=== PATIENT | female | born 1990 | race Caucasian/White ===

== ENCOUNTER 2022-01-29 12:44 | Emergency (ER) | payer OTHER | END 2022-01-29 14:39 | disposition home or self-care (01) | LOC: MW.ED 12:44 | DX: H92.01 Otalgia, right ear (principal) | CPT/HCPCS: 99282 ==

== ENCOUNTER 2022-04-24 21:12 | Emergency (ER) | payer OTHER ==
[2022-04-24] MEDS ORDERED: LORazepam 2 MG/ML SDV IVPUSH ONE ×2 (21:30→23:44)
[2022-04-24] MEDS ORDERED: Ketorolac 30 MG/ML SDV IVPUSH ONE (21:30)
[2022-04-24 22:45] LABS: BLOOD UREA NITROGEN,BUN 16 mg/dL (7.0-18.0); CARBON DIOXIDE,CO2 22.3 mmol/L (21.0-32.0); CHLORIDE,CL 99 mmol/L (98-107); GLUCOSE RANDOM 109 mg/dL (74-106); POTASSIUM,K 3.7 mmol/L (3.5-5.1); SODIUM,NA 135 mmol/L (136-145)
[2022-04-24 22:59] LABS: ESTIMATED GFR 87 mL/min (>60)
== END 2022-04-25 00:12 | disposition home or self-care (01) ==
LOC: MW.ED 21:12
DX: F41.9 Anxiety disorder, unspecified (principal); R09.81 Nasal congestion
CPT/HCPCS: 36415; 71045; 80053; 83735; 84439; 84443; 84484; 84703; 85025; 93005; 96374; 96375; 96376; 99284; J1885; J2060; 93010